=== PATIENT | female | born 1960 | race Caucasian/White ===

== ENCOUNTER 2020-02-15 19:01 | Emergency (ER) | payer BC ==
[~2020-02-15] VITALS: Ht 165.1 cm; Wt 94.3 kg
[2020-02-15 19:27] LABS: BASO % 0.4 % (0.0-1.0); EOS % 0.4 % (1.0-4.0); LYMPH # 1.7 10*3/uL (1.3-4.4); LYMPH % 18.4 % (27.0-41.0); MEAN CELL VOLUME 84.3 fl (81.0-99.0); MEAN CORPUSCULAR HGB 27.5 pg (27.0-31.0); MEAN CORPUSCULAR HGB CONC 32.6 g/dl (33.0-37.0); MEAN PLATELET VOLUME 11.1 fl (9.6-12.3); MONO # 0.3 10*3/uL (0.1-1.0); MONO % 2.9 % (3.0-9.0); NEUT # 7.3 10*3/uL (2.3-7.9); NEUT % 77.5 % (47.0-73.0); PLATELET COUNT AUTOMATED 233 10*3/uL (130-400); WHITE BLOOD COUNT 9.4 10*3/uL (4.8-10.8)
[2020-02-15 19:38] LABS: ACT PARTIAL THROMBO TIME 25.4 SECONDS (20.0-32.1)
[2020-02-15 19:44] LABS: ALBUMIN 4.4 gm/dl (3.1-4.5); CREATININE 1.24 mg/dL (0.55-1.02); POTASSIUM 4.1 mmol/L (3.5-5.1); TOTAL PROTEIN 8.6 gm/dL (6.4-8.2)
[2020-02-15 19:47] LABS: TROPONIN I 0.164 ng/ml (<0.045)
[2020-02-15 19:51] VITALS: BP 160/100
== END 2020-02-15 20:31 | disposition short-term general hospital (02) ==
LOC: ED 19:01
PROVIDERS: Emergency Medicine Emergency Medical Services
DX: I21.3 ST elevation (STEMI) myocardial infarction of unspecified site (principal); E11.9 Type 2 diabetes mellitus without complications; I10 Essential (primary) hypertension; Z88.6 Allergy status to analgesic agent

== ENCOUNTER 2023-12-24 14:29 | Inpatient (IN) | payer BC, MEDICARE ==
[~2023-12-24] VITALS: Ht 170.2 cm; Wt 95.9 kg
[2023-12-24 14:45] VITALS: BP 217/90
[2023-12-24 15:10] LABS: BASO # 0.1 10*3/uL (0.0-0.1); BASO % 0.7 % (0.0-1.0); EOS # 0.1 10*3/uL (0.0-0.4); EOS % 0.8 % (1.0-4.0); HEMATOCRIT 43.2 % (37.0-47.0); LYMPH # 1.5 10*3/uL (1.3-4.4); LYMPH % 20.5 % (27.0-41.0); MEAN CELL VOLUME 85.9 fl (81.0-99.0); MEAN CORPUSCULAR HGB 27.6 pg (27.0-31.0); MEAN CORPUSCULAR HGB CONC 32.2 g/dl (33.0-37.0); MEAN PLATELET VOLUME 10.6 fl (9.6-12.3); MONO # 0.4 10*3/uL (0.1-1.0); MONO % 5.9 % (3.0-9.0); NEUT # 5.2 10*3/uL (2.3-7.9); NEUT % 71.8 % (47.0-73.0); PLATELET COUNT AUTOMATED 189 10*3/uL (130-400); RED BLOOD COUNT 5.03 10*6/uL (4.10-5.10); RED CELL DISTRI WIDTH 13.4 % (0-14.5); WHITE BLOOD COUNT 7.3 10*3/uL (4.8-10.8)
[2023-12-24 15:21] LABS: ACT PARTIAL THROMBO TIME 27.7 SECONDS (20.0-32.1)
[2023-12-24 15:27] LABS: ALKALINE PHOSPHATASE 78 U/L (46-116); BUN 14 mg/dl (9-23); CHLORIDE 103 mmol/L (98-107); POTASSIUM 4.5 mmol/L (3.4-5.1); SGPT/ALT 15 U/L (5-49); TOTAL PROTEIN 7.3 gm/dL (6.0-8.0)
[2023-12-24] MEDS ORDERED: SODIUM CHLORIDE 0.9% 100 ML BAG IV ONE (15:50)
[2023-12-24] MEDS ORDERED: hydrALAZINE hydrochloride 20 MG/ML VIAL IV ONE (15:50)
[2023-12-24] MEDS ORDERED: IOHEXOL 350 MG/ML 100 ML VIAL IV ONE ×2 (15:50→16:00)
[2023-12-24] MEDS ORDERED: SODIUM CHLORIDE 0.9% 100 ML IV ONE (16:00)
[2023-12-24 16:40] VITALS: BP 197/83
[2023-12-24 17:00] LABS: BILIRUBIN Negative (Negative); BLOOD Negative (Negative); CLARITY Clear (Clear); COLOR Yellow (Yellow); GLUCOSE Negative (Negative); KETONE Negative (Negative); LEUKO ESTERASE Negative (Negative); NITRITE Negative (Negative); SPECIFIC GRAVITY 1.015 (1.001-1.030); UROBILINOGEN 0.2 E.U./dl (0.0-1.0)
[2023-12-24] MEDS ORDERED: ASPIRIN 325 MG TAB PO ONE (17:15)
[2023-12-24] MEDS ORDERED: BISACODYL 10 MG SUPP R PRN (17:40)
[2023-12-24] MEDS ORDERED: BISACODYL 5 MG TAB PO PRN (17:40)
[2023-12-24 17:51] VITALS: BP 174/48
[2023-12-24 18:30] VITALS: BP 174/90
[2023-12-24] MEDS ORDERED: COZAAR50 M1 PO (18:48)
[2023-12-24] MEDS ORDERED: METFORMIN HYDR500 MG PO (18:48)
[2023-12-24] MEDS ORDERED: TOPROL XL25 MG PO (18:48)
[2023-12-24] MEDS ORDERED: JARDIANCE10 MG PO (18:49)
[2023-12-24] MEDS ORDERED: ATORVASTATIN CA40 M1 PO (18:49)
[2023-12-24] MEDS ORDERED: DEXTROSE 10 % IN WATER 250 ML IV PRN (19:20)
[2023-12-24 20:01] VITALS: BP 150/76
[2023-12-24] MEDS ORDERED: ATORVASTATIN CALCIUM 40 MG TABLET PO SCH (22:00)
[2023-12-24] MEDS ORDERED: INSULIN LISPRO 1 UNIT/0.01 ML SQ SCH (22:00)
[2023-12-24 22:26] VITALS: BP 154/77
[2023-12-25] VITALS (8 sets, daily range): BP systolic 151–178; BP diastolic 64–106
[2023-12-25 05:26] LABS: BUN 13 mg/dl (9-23); CHLORIDE 103 mmol/L (98-107); CHOLESTEROL 252 mg/dL (<200); LDL CHOLESTEROL 149 mg/dL (9-159); POTASSIUM 4.2 mmol/L (3.4-5.1); TRIGLYCERIDES 342 mg/dl (<150)
[2023-12-25 06:07] LABS: BASO % 0.7 % (0.0-1.0); EOS # 0.1 10*3/uL (0.0-0.4); HEMATOCRIT 43.2 % (37.0-47.0); LYMPH # 2.3 10*3/uL (1.3-4.4); MEAN CELL VOLUME 86.6 fl (81.0-99.0); MEAN CORPUSCULAR HGB 27.3 pg (27.0-31.0); MEAN CORPUSCULAR HGB CONC 31.5 g/dl (33.0-37.0); MONO # 0.4 10*3/uL (0.1-1.0); MONO % 6.5 % (3.0-9.0); NEUT # 3.2 10*3/uL (2.3-7.9); NEUT % 53.5 % (47.0-73.0); PLATELET COUNT AUTOMATED 180 10*3/uL (130-400); RED BLOOD COUNT 4.99 10*6/uL (4.10-5.10); RED CELL DISTRI WIDTH 13.7 % (0-14.5)
[2023-12-25] MEDS ORDERED: Enoxaparin Sodium 40 MG/0.4 ML SYR SC SCH (10:00)
[2023-12-25] MEDS ORDERED: ASPIRIN ENTERIC COATED 81 MG TAB PO SCH (10:00)
[2023-12-25] MEDS ORDERED: Losartan Potassium 50 MG TAB PO SCH (16:56)
[2023-12-25] MEDS ORDERED: METOPROLOL SUCCINATE XR 25 MG TAB PO SCH (16:57)
[2023-12-25] MEDS ORDERED: ATORVASTATIN CALCIUM 80 MG TAB PO SCH (22:00)
[2023-12-26] VITALS: BP 163/82
[2023-12-26 06:57] LABS: BASO % 0.7 % (0.0-1.0); EOS # 0.1 10*3/uL (0.0-0.4); EOS % 1.7 % (1.0-4.0); HEMATOCRIT 41.4 % (37.0-47.0); LYMPH # 2.1 10*3/uL (1.3-4.4); LYMPH % 35.5 % (27.0-41.0); MEAN CELL VOLUME 85.2 fl (81.0-99.0); MEAN CORPUSCULAR HGB CONC 32.9 g/dl (33.0-37.0); MEAN PLATELET VOLUME 11.1 fl (9.6-12.3); MONO # 0.5 10*3/uL (0.1-1.0); MONO % 7.8 % (3.0-9.0); NEUT # 3.2 10*3/uL (2.3-7.9); NEUT % 53.8 % (47.0-73.0); PLATELET COUNT AUTOMATED 176 10*3/uL (130-400); RED BLOOD COUNT 4.86 10*6/uL (4.10-5.10); RED CELL DISTRI WIDTH 13.6 % (0-14.5); WHITE BLOOD COUNT 5.9 10*3/uL (4.8-10.8)
[2023-12-26 07:04] LABS: BUN 19 mg/dl (9-23); CHLORIDE 104 mmol/L (98-107); POTASSIUM 4.5 mmol/L (3.4-5.1)
[2023-12-26 08:00] VITALS: BP 154/79
[2023-12-26] MEDS ORDERED: LORazepam 0.5 MG TAB PO PRN (08:35)
[2023-12-26] MEDS ORDERED: EMPAGLIFLOZIN 10 MG TABLET PO SCH (10:00)
[2023-12-26] MEDS ORDERED: GADOTERATE MEGLUMINE 10 MMOL/20 ML VIAL IV ONE (10:46)
[2023-12-26 12:00] VITALS: BP 141/89
[2023-12-26] MEDS ORDERED: ASPIRIN ADULT L81 M2 PO (12:54)
[2023-12-26] MEDS ORDERED: JARDIANCE10 MG PO (12:54)
[2023-12-26] MEDS ORDERED: ATORVASTATIN CA80 M1 PO (12:54)
[2023-12-26] MEDS ORDERED: TOPROL XL25 MG PO (12:54)
[2023-12-26] MEDS ORDERED: METFORMIN HYDR500 MG PO (12:54)
[2023-12-26] MEDS ORDERED: PLAVIX75 M1 PO (12:54)
[2023-12-26] MEDS ORDERED: COZAAR50 M1 PO (12:54)
[2023-12-26 16:00] VITALS: BP 133/78
== END 2023-12-26 17:10 | disposition home or self-care (01) | DRG 65 ==
LOC: ED 14:29 → EDHOLD 17:20 → 4E 17:20
PROVIDERS: Emergency Medicine; Family Medicine; Student in an Organized Health Care Education/Training Program; ADMIT Internal Medicine; ATTEND Internal Medicine
DX: I63.81 Other cerebral infarction due to occlusion or stenosis of small artery (principal); I16.1 Hypertensive emergency; R20.2 Paresthesia of skin; E78.00 Pure hypercholesterolemia, unspecified; N18.31 Chronic kidney disease, stage 3a; I12.9 Hypertensive chronic kidney disease with stage 1 through stage 4 chronic kidney disease, or unspecified chronic kidney disease; E11.22 Type 2 diabetes mellitus with diabetic chronic kidney disease; E78.5 Hyperlipidemia, unspecified; E11.65 Type 2 diabetes mellitus with hyperglycemia; R29.90 Unspecified symptoms and signs involving the nervous system; Z95.1 Presence of aortocoronary bypass graft; Z88.6 Allergy status to analgesic agent; Z94.9 Transplanted organ and tissue status, unspecified; Z83.3 Family history of diabetes mellitus